=== PATIENT | male | born 1970 | race Caucasian/White ===

== ENCOUNTER 2019-04-09 11:43 | Emergency (ER) | payer BC ==
[~2019-04-09] VITALS: Ht 185.4 cm; Wt 115.9 kg
[2019-04-09 11:51] VITALS: BP 174/86; TEMP 98
[2019-04-09 15:12] VITALS: PULSE 90
== END 2019-04-09 15:12 | disposition home or self-care (01) ==
LOC: COL.ER 11:43
DX: M65.331 Trigger finger, right middle finger (principal)